=== PATIENT | female | born 1970 ===

== ENCOUNTER 2017-06-12 08:47 | Emergency (ER) | payer OTHER ==
[2017-06-12 08:53] VITALS: TEMP 98.9
--- NOTE | 2017-06-12 09:16 | C.PDOC ---
History Of Present Illness 47 year old female presents to the ED with complaints of persistent itchy nose for three weeks with redness. Patient initially scratched nose and had a scab that has since resolved. She notes no improvement with over the counter antibiotic cream and daily use of hydrogen peroxide. Patient denies fever, cough , shortness of breath, or any other associated symptoms. VIA TRANS ITCH NOSE X 3 WEEKS. INITIALLY SCRATCHED NOSE, HAD SCAB NOW RESOLVED. NOW W PERSIST ITCH. +REDNESS. NO IMPROVE W OTC ABX CREAM AND DAILY H2O2 USE. NO OTHER ASSOC SX EXAM NAD HEENT NO RHINORRHEA, SWELL, DC SKIN +REDNESS DISTAL NOSE C/W LOCAL DERMATITIS. NO LESIONS, DC. NONTEND. NO HIVES, CELLULITIS MDM ALOE VERA, BENADRYL FU CLINIC Time Seen by Provider: 06/12/17 09:05 Chief Complaint (Nursing): ENT Problem History Per: Patient, Bid Writer (via travel service consultant ) History/Exam Limitations: no limitations Onset/Duration Of Symptoms: Persistent (3 weeks ) Current Symptoms Are (Timing): Still Present Recent travel outside of the [place]: No Past Medical History Reviewed: Historical Data, Nursing Documentation, Vital Signs Vital Signs: Last Vital Signs Temp 98.9 F 06/12/17 08:50 Pulse 85 06/12/17 09:34 Resp 18 06/12/17 09:34 BP 139/72 06/12/17 09:34 Pulse Ox 99 06/12/17 09:34 Family History: States: Unknown Family Hx - Social History Hx Alcohol Use: Yes Hx Substance Use: No - Immunization History Hx Tetanus Toxoid Vaccination: No Hx Influenza Vaccination: No Hx Pneumococcal Vaccination: No Review Of Systems Constitutional: Negative for: Fever, Chills ENT: Positive for: Other (itchy nose and redness) Cardiovascular: Negative for: Chest Pain, Palpitations Respiratory: Negative for: Cough, Shortness of Breath Gastrointestinal: Negative for: Nausea, Vomiting Physical Exam - Physical Exam Appears: Non-toxic, No Acute Distress Skin: Warm, Dry, Other (+ redness to distal nose consistent with local dermatitis. Non-tender, no hives, cellulitis, lesions, or discharge.) Head: Atraumatic, Normacephalic Eye(s): bilateral: Normal Inspection, PERRL, EOMI Ear(s): Bilateral: Normal Nose: Normal, No Discharge, Other (no swelling) Oral Mucosa: Moist Throat: Normal, No Erythema, No Exudate Neck: Supple Chest: Symmetrical, No Deformity Cardiovascular: Rhythm Regular, No Murmur Respiratory: Normal Breath Sounds, No Rales, No Rhonchi, No Wheezing Neurological/Psych: Oriented x3 ED Course And Treatment O2 Sat by Pulse Oximetry: 98 (room air ) Medical Decision Making Medical Decision Making: Aloe Vera, benadryl, and follow up with clinic Disposition Counseled Patient/Family Regarding: Diagnosis, Need For Followup, Rx Given - Disposition Referrals: [facility] [Outside] [facility] [Outside] Disposition: HOME/ ROUTINE Disposition Time: 09:13 Condition: GOOD Prescriptions: DiphenhydrAMINE [Benadryl] 50 mg PO TID PRN #30 cap PRN Reason: Itching / Pruritus Hydrocortisone 0.5% [Cortizone 0.5%] 0.5 % TP BID #1 tube Instructions: Dermatitis (ED) Forms: [employer] (Italian) Print Language: LITHUANIAN - Clinical Impression Clinical Impression: Pruritic dermatitis - Scribe Statement The provider has reviewed the documentation as recorded by the Scribe Aislinn Bell All medical record entries made by the Natiibe were at my direction and personally dictated by me. I have reviewed the chart and agree that the record accurately reflects my personal performance of the history, physical exam, medical decision making, and the department course for this patient. I have also personally directed, reviewed, and agree with the discharge instructions and disposition.
[2017-06-12 09:35] VITALS: BP 139/72; PULSE 85; RESP 18
[2017-06-12 10:20] VITALS: O2SAT 98
== END 2017-06-12 09:35 | disposition home or self-care (01) ==
LOC: C.ER 08:47
DX: L30.8 Other specified dermatitis (principal)